=== PATIENT | female | born 1955 | race Caucasian/White ===

== ENCOUNTER 2021-07-12 20:16 | Emergency (ER) | payer OTHER ==
[~2021-07-12] VITALS: Ht 170.2 cm; Wt 70.3 kg
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
[2021-07-12] MEDS ORDERED: CYCLOBENZAPRINE 10 MG TABLET ONE (21:59)
[2021-07-12] MEDS ORDERED: NAPROXEN 250 MG TABLET ONE (22:00)
[2021-07-12] MEDS: NAPROXEN 250 MG TABLET PO ONE (22:00)
[2021-07-12] MEDS: CYCLOBENZAPRINE 10 MG TABLET PO ONE (22:00)
[2021-07-12] MEDS ORDERED: NAPR-1192 PO (22:40)
[2021-07-12] MEDS ORDERED: CYCL5TAB PO (22:40)
--- NOTE | 2021-07-12 23:12 | NUR ---
Patient discharged to home in stable condition. Written and verbal after care instructions given. Patient verbalizes understanding of instruction.
[2021-07-12 23:17] VITALS: BP 139/75
== END 2021-07-12 23:15 | disposition home or self-care (01) ==
LOC: ER 20:21
DX: S40.212A Abrasion of left shoulder, initial encounter (principal); S20.312A Abrasion of left front wall of thorax, initial encounter; R07.89 Other chest pain; I10 Essential (primary) hypertension; Z88.0 Allergy status to penicillin; Z79.1 Long term (current) use of non-steroidal anti-inflammatories (NSAID); Z79.899 Other long term (current) drug therapy; V89.2XXA Person injured in unspecified motor-vehicle accident, traffic, initial encounter; Y93.89 Activity, other specified; Y92.89 Other specified places as the place of occurrence of the external cause; Y99.8 Other external cause status
CPT/HCPCS: 71045-TC